=== PATIENT | male | born 1985 | race Caucasian/White ===

== ENCOUNTER 2018-02-03 05:05 | Emergency (ER) | payer BC ==
[2018-02-03] MEDS: KETOROLAC TROMETHAMINE 30 MG/1ML VIAL IVP ONE (05:15)
[2018-02-03] MEDS: ONDANSETRON HCL/PF 4 MG/ 2ML VIAL IVP ONE (05:15)
--- NOTE | 2018-02-03 05:23 | ED Physician Documentation ---
General Adult - HISTORIAN Historian: patient, friend - [facility] Stated Complaint: flank pain Chief Complaint: General Adult Additional Information: [place], when two hours ago he began to have left low back pain that radiates around to low abdomen. Nauseated. Says pain is severe. (Tells RN that pain is on right side). - ROS CONST: no problems - PAST HX Past History: other (describes what sounds like PFO) Allergies/Adverse Reactions: Allergies Allergy/AdvReac Type Severity Reaction Status Date / Time No Known Allergies Allergy Verified 02/03/18 05:36 Home Medications: Ambulatory Orders Medication Instructions Recorded NK [NK] 02/03/18 - SOCIAL HX Smoking History: non-smoker Alcohol Use: occasionally - FAMILY HX Family History: No - REVIEWED ASSESSMENTS Nursing Assessment Reviewed: Yes Vitals Reviewed: Yes Progress - Progress Progress: Report Submission Date: Feb 03, 2018 6:11:06 AM CDT Patient Study Name: EMRE BA Date: Feb 03, 2018 5:33:11 AM CDT Modality Type: CT\SR Gender: M Description: CT ABD PELVIS W/O CO : 89 Institution: [facility] Physician: NOE LUNDY - CT abdomen and pelvis without contrast History: Flank pain Technique: Images through the abdomen and pelvis were obtained without contrast. Findings: The lung bases, liver, gallbladder, spleen, pancreas and adrenal glands are normal on this noncontrast examination. There are several 1 mm nonobstructing right renal calculi. There is only minimal hydronephrosis or hydroureter on the right. There is a 1 mm right ureterovesical junction calculus. There are several nonobstructing 1 mm and 2 mm left renal calculi. There is no hydronephrosis or hydroureter or ureteral calculus on the left. There is no free air or fluid. There is no bowel obstruction. The appendix is not seen. Impression: Minimal bilateral nephrolithiasis. 1 mm right ureterovesical junction calculus with minimal urinary obstruction. Electronically signed on Feb 03, 2018 6:11:06 AM CDT by: Fabrice Olmedo ED Results Lab/Radiology - Orders Orders: ED Orders Category Date Time Status Place IV Lock 1T Care 02/03/18 05:[address] ABD & PELVIS W/O CON Stat Exams 02/03/18 Ordered CBC/PLATELET/DIFF Routine Lab 02/03/18 Ordered CMP Routine Lab 02/03/18 Ordered URINALYSIS Routine Lab 02/03/18 Ordered Ketorolac Tromethamine [Toradol] Med 02/03/18 05:06 Discontinued 30 mg .ROUTE .STK-MED ONE Ketorolac Tromethamine [Toradol] Med 02/03/18 05:12 Once 30 mg IVP NOW ONE Morphine Sulfate Med 02/03/18 05:18 Once 5 mg IVP NOW ONE NORMAL SALINE @ 1000 MLS/HR ( 1000ml BOLUS) Med 02/03/18 05:12 Ordered 0.9 % Sodium Chloride [Normal Saline] 1,000 ml IV Q1H Ondansetron HCl/Pf [Zofran 4 mg/2 ml] Med 02/03/18 05:11 Discontinued 4 mg .ROUTE .STK-MED ONE Ondansetron HCl/Pf [Zofran 4 mg/2 ml] Med 02/03/18 05:12 Once 4 mg IVP NOW ONE General Adult Physical Exam - PHYSICAL EXAM GENERAL APPEARANCE: rolling about on stretcher EENT: eye inspection normal, ENT inspection normal NECK: normal inspection, supple RESPIRATORY: no resp distress, breath sounds normal CVS: reg rate & rhythm, heart sounds normal, no murmur ABDOMEN: normal bowel sounds, no distension, non-tender BACK: normal inspection, no CVA tenderness, CVA tenderness (R) SKIN: warm/dry, normal color EXTREMITIES: normal range of motion (gait ) NEURO: CN's nml as tested, motor nml, sensation nml, cognition normal (ETOH on board) Discharge Clincal Impression: Kidney stone on right side Additional Instructions: Drink plenty of water. Return to the ER if you are not better in 48 hours or if you have fever of 101 or higher or you cannot control your pain. Condition: Good Disposition: 01 HOME, SELF-CARE Decision to Admit: NO Decision Time: 06:30
[2018-02-03] MEDS: 0.9 % SODIUM CHLORIDE 1,000 ML IV ONE ×2 (05:25→06:30)
[2018-02-03] MEDS: MORPHINE SULFATE 10 MG/ML CARTRIDGE IVP ONE ×2 (05:27→06:08)
[2018-02-03] MEDS: KETOROLAC TROMETHAMINE 30 MG/1ML VIAL ONE (05:30)
[2018-02-03] MEDS: ONDANSETRON HCL/PF 4 MG/ 2ML VIAL ONE (05:30)
[2018-02-03 05:53] LABS: BASOPHILS % 0.7 (0.0-1.5); EOSINOPHILS % 3.5 % (0.0-6.8); MEAN CORPUSCULAR HEMOGLOBIN 30.3 pg (28.0-34.0); MEAN CORPUSCULAR VOLUME 89.4 fl (80.0-100.0); MONOCYTES % 4.8 % (0.0-11.0); NEUTROPHILS # 4.4 # k/uL (1.4-7.7)
[2018-02-03 05:59] LABS: eGFR (Non-African) > 60
--- NOTE | 2018-02-03 06:34 | Diagnostic Imaging Report ---
[facility] [address] [facility] [address] [place], [place]. [address] Report Submission Date: Feb 03, 2018 6:11:06 AM CDT Patient Study Name: EMRE BA Date: Feb 03, 2018 5:33:11 AM CDT Modality Type: CT\SR Gender: M Description: CT ABD PELVIS W/O CO : 89 Institution: [facility] Physician: NOE LUNDY CT abdomen and pelvis without contrast History: Flank pain Technique: Images through the abdomen and pelvis were obtained without contrast. Findings: The lung bases, liver, gallbladder, spleen, pancreas and adrenal glands are normal on this noncontrast examination. There are several 1 mm nonobstructing right renal calculi. There is only minimal hydronephrosis or hydroureter on the right. There is a 1 mm right ureterovesical junction calculus. There are several nonobstructing 1 mm and 2 mm left renal calculi. There is no hydronephrosis or hydroureter or ureteral calculus on the left. There is no free air or fluid. There is no bowel obstruction. The appendix is not seen. Impression: Minimal bilateral nephrolithiasis. 1 mm right ureterovesical junction calculus with minimal urinary obstruction. Electronically signed on Feb 03, 2018 6:11:06 AM CDT by: Fabrice INGRAM
[2018-02-03 07:54] VITALS: BP 90/58
== END 2018-02-03 07:45 | disposition home or self-care (01) ==
LOC: ED 05:05
DX: N20.0 Calculus of kidney (principal)
CPT/HCPCS: 74176; 80053; 85025; J1885; J2270; J2405; J7030; 96365; 96367; 96375; 96376; S1016